=== PATIENT | male | born 1985 | race Caucasian/White ===

== ENCOUNTER 2017-01-31 03:07 | Emergency (ER) | payer SELFPAY ==
[~2017-01-31] VITALS: Ht 182.9 cm; Wt 61.4 kg
[~2017-01-31 03:07] MED LIST: BACT800T5 PO
[2017-01-31 03:11] VITALS: BP 124/75; PULSE 99; RESP 16; TEMP 98.4; O2SAT 100
[2017-01-31] MEDS ORDERED: ceFAZolin 2 GM PREMIX 50 ML IV ONE (03:45)
[2017-01-31] MEDS ORDERED: CLINDAMYCIN INJ 900 MG in SODIUM CHLORIDE 0.9% INJ 100 ML IV ONE (03:45)
[2017-01-31] MEDS ORDERED: SODIUM CHLOR 0.9% 1000 ML INJ 1,000 ML IV ONE (03:45)
[2017-01-31 04:11] LABS: AUTOMATED NEUTROPHIL # 4.9 TH/MM3 (1.8-7.7); BASOPHIL # 0.1 TH/MM3 (0-0.2); BASOPHIL % 0.7 % (0.0-2.0); EOSINOPHIL # 0.2 TH/MM3 (0-0.4); HEMATOCRIT 38.5 % (39.0-51.0); HEMO FLAGS DIFF FINAL; LYMPH % 27.4 % (9.0-44.0); LYMPHOCYTE # 2.2 TH/MM3 (1.0-4.8); MEAN CELL VOLUME 91.7 FL (80.0-100.0); MEAN CORPUSCULAR HEMOGLOBIN 32.6 PG (27.0-34.0); MEAN CORPUSCULAR HGB CONC 35.5 % (32.0-36.0); MONO % 9.3 % (0.0-8.0); NEUT % 60.6 % (16.0-70.0); PLATELET COUNT 214 TH/MM3 (150-450); RED CELL DISTRIBUTION WIDTH 12.7 % (11.6-17.2); WHITE BLOOD COUNT 8.1 TH/MM3 (4.0-11.0)
--- NOTE | 2017-01-31 04:18 | RADRPT ---
EXAM DATE/TIME: 01/31/2017 03:56 [place] COMPARISON: No previous studies available for comparison. INDICATIONS : Inflammation of left leg, swelling. MEDICAL HISTORY : None. SURGICAL HISTORY : None. ENCOUNTER: Initial ACUITY: 1 day PAIN SCORE: 0/10 LOCATION: Left tib fib FINDINGS: Two view examination of the left tibia demonstrates no evidence of fracture or dislocation. Bony min eralization is normal. The soft tissue structures are intact. CONCLUSION: Unremarkable examination of the left tibia. Mic Mosley MD on January 31, 2017 at 4:17 Board Certified Radiologist. This report was verified electronically.
[2017-01-31 04:30] LABS: BICARBONATE 27.8 MEQ/L (21.0-32.0); POTASSIUM 3.8 MEQ/L (3.5-5.1)
[2017-01-31] MEDS ORDERED: BACT800T5 PO (05:10)
[2017-01-31] MEDS ORDERED: CEPH-460 PO (05:10)
--- NOTE | 2017-01-31 05:10 | PD ---
HPI Chief Complaint: Injury Time Seen by Provider: 03:11 Travel History International Travel<30 days: No Contact w/Intl Traveler<30days: No Traveled to known affect area: No History of Present Illness HPI The patient is a 31 year old male who presents to the [facility] emergency department with a history of bumping his left kumari approximately 2 weeks ago. He reports that it had an abrasion on the anterior aspect. He reports that he cleaned it with peroxide and it was slowly healing over time up until yesterday when he noticed that it looked like he was getting infected. The patient reports that he squeezed the area and a small amount of yellow discharge was drained. He reports that since then it is crusted over. He reports that since then the area of redness and swelling has increased in size. He reports that his tetanus was updated earlier this year. He denies having any fevers or chills. He denies having any cough or congestion. Otherwise on review of systems, he denies having any neck pain, chest pain, shortness of breath, abdominal pain, vomiting, diarrhea, urinary symptoms, or neurologic symptoms. [facility] Past Medical History Narrative Medical The patient's past medical history is significant for bipolar disorder, hepatitis C. Bipolar Disorder: Yes Diminished Hearing: No Hepatitis: Yes (hep c) Past Surgical History Narrative Surgical The patient's past surgical history is significant for facial bone ORIF. Other Surgery: Yes (plates in face for fractures, ) Social History Alcohol Use: No Tobacco Use: Yes (02/27 ppd) Substance Use: No (stated IV drug last use 2015) Allergies-Medications (Allergen,Severity, Reaction): Coded Allergies: No Known Allergies (Unverified , 05/08/16) Reported Meds & Prescriptions Reported Meds & Active Scripts Active Bactrim DS (Sulfamethoxazole-Trimethoprim) 800-160 Mg Tab 1 Tab PO BID Review of Systems Except as stated in HPI: all other systems reviewed are Neg General / Constitutional: No: Fever Eyes: No: Visual changes HENT: No: Headaches Cardiovascular: No: Chest Pain or Discomfort Respiratory: No: Shortness of Breath Gastrointestinal: No: Nausea, Vomiting, Diarrhea, Abdominal Pain, Changes in Bowel Habits, Indigestion, Loss of Appetite Genitourinary: No: Dysuria Musculoskeletal: No: Pain Skin: No Rash Neurologic: No: Weakness, Focal Abnormalities, Change in Mentation, Slurred Speech, Sensory Disturbance Psychiatric: No: Depression Endocrine: No: Polydipsia Hematologic/Lymphatic: No: Easy Bruising Physical Exam Narrative General: The patient is a well-developed well-nourished male in no acute distress. Head and Neck exam: Head is normocephalic atraumatic. Eyes: EOMI, pupils are equal round and reactive to light. Nose: Midline septum with pink mucous membranes Mouth: Dentition unremarkable. Moist mucus membranes. Posterior oropharynx is not erythematous. No tonsillar hypertrophy. Uvula midline. Airway patent. Neck: No palpable lymphadenopathy. No nuchal rigidity. No thyromegaly. Cardiovascular: Regular rate and rhythm without murmurs, gallops, or rubs. Lungs: Clear to auscultation bilaterally. No wheezes, rhonchi, or rales. Abdomen: Soft, without tenderness to palpation in all 4 quadrants of the abdomen. No guarding, rebound, or rigidity. Normal bowel sounds were audible. No tenderness on palpation of McBurney's point. Extremities: No clubbing or cyanosis. The patient does however have trace edema of the left lower extremity. The patient is noted on examination of the left kumari to have an abrasion in the middle anterior aspect with surrounding erythema and a small amount of edema, with warmth, no fluctuance. No crepitus or pointing. 2+ pulses in all 4 extremities. Back: No spinous process tenderness to palpation. No costovertebral angle tenderness to palpation. Neurologic Exam: Grossly nonfocal. Skin Exam: Skin is warm and dry. Data Data Last Documented VS Vital Signs Date Time Temp Pulse Resp B/P (MAP) Pulse Ox O2 Delivery O2 Flow Rate FiO2 01/31/17 03:11 98.4 99 16 124/75 (91) 100 Orders Orders Complete Blood Count With Diff (01/31/17 03:45) Basic Metabolic Panel (Bmp) (01/31/17 03:45) Iv Access Insert/Monitor (01/31/17 03:45) Ecg Monitoring (01/31/17 03:45) Oximetry (01/31/17 03:45) Clindamycin Inj (Cleocin Inj) (01/31/17 03:45) Cefazolin 2 Gm Premix (Ancef 2 Gm Premix (01/31/17 03:45) Sodium Chlor 0.9% 1000 Ml Inj (Ns 1000 M (01/31/17 03:45) Tibia/Fibula (Ap/Lat) (01/31/17 ) Labs Laboratory Tests Test 01/31/17 03:54 White Blood Count 8.1 TH/MM3 Red Blood Count 4.20 MIL/MM3 Hemoglobin 13.7 GM/DL Hematocrit 38.5 % Mean Corpuscular Volume 91.7 FL Mean Corpuscular Hemoglobin 32.6 PG Mean Corpuscular Hemoglobin Concent 35.5 % Red Cell Distribution Width 12.7 % Platelet Count 214 TH/MM3 Mean Platelet Volume 8.2 FL Neutrophils (%) (Auto) 60.6 % Lymphocytes (%) (Auto) 27.4 % Monocytes (%) (Auto) 9.3 % Eosinophils (%) (Auto) 2.0 % Basophils (%) (Auto) 0.7 % Neutrophils # (Auto) 4.9 TH/MM3 Lymphocytes # (Auto) 2.2 TH/MM3 Monocytes # (Auto) 0.8 TH/MM3 Eosinophils # (Auto) 0.2 TH/MM3 Basophils # (Auto) 0.1 TH/MM3 CBC Comment DIFF FINAL Differential Comment Blood Urea Nitrogen 16 MG/DL Creatinine 0.82 MG/DL Random Glucose 102 MG/DL Calcium Level 8.8 MG/DL Sodium Level 136 MEQ/L Potassium Level 3.8 MEQ/L Chloride Level 102 MEQ/L Carbon Dioxide Level 27.8 MEQ/L Anion Gap 6 MEQ/L Estimat Glomerular Filtration Rate 110 ML/MIN MDM Medical Decision Making Medical Screen Exam Complete: Yes Emergency Medical Condition: Yes Medical Record Reviewed: Yes Interpretation(s) Last Impressions Tibia/Fibula X-Ray 01/31/17 0000 Signed Impressions: Service Date/Time: Tuesday, January 31, 2017 03:56 - CONCLUSION: Unremarkable examination of the left tibia. Mic Mosley MD Differential Diagnosis Cellulitis, versus osteomyelitis, versus foreign body Narrative Course During the course of the patients emergency department visit, the patients history, examination, and differential diagnosis were reviewed with the patient. The patient was placed on a property assessment monitor with oximetry and frequent blood pressure monitoring. The patient had IV access obtained and blood work sent for analysis. An x-ray of the left tib-fib was ordered. The patient was initially provided clindamycin 900 mg IV, Ancef 2 g IV. The patients laboratory studies were reviewed and remarkable for a white count of 8.1, hemoglobin 13.7, platelets 214 with 9.3 monocytes Radiology studies were reviewed and remarkable for a left tib-fib x-ray that shows no acute abnormality. The patient will be discharged home with a prescription for Bactrim and Keflex. The patient is resting comfortably and feels better, is alert and in no distress. The patients results and examination findings were discussed with the patient. The repeat examination is unremarkable and benign. The history, exam, diagnostic testing, and current condition do not suggest any significant pathology to warrant further testing, continued ED treatment, admission, or surgical evaluation at this point. The vital signs have been stable. The patient does not have uncontrollable pain, intractable vomiting, or other significant symptoms. The patient's condition is stable and appropriate for discharge. The patient will pursue further outpatient evaluation with a primary care physician or other designated or consulting physician as indicated in the discharge instructions. The patient expressed understanding and was agreeable with this plan. Diagnosis Primary Impression: Cellulitis Qualified Codes: L03.116 - Cellulitis of left lower limb Referrals: [facility] 2 days Patient Instructions: Cellulitis (ED), General Instructions Med/Other Pt SpecificInfo: Prescription(s) given Scripts Cephalexin (Keflex) 500 Mg Capsule 500 MG PO QID for Infection, #39 CAP 0 Refills Prov: Chio Vasquez MD 01/31/17 Sulfamethoxazole-Trimethoprim (Bactrim DS) 800-160 Mg Tab 1 TAB PO BID for Infection, #20 TAB 0 Refills Prov: Chio Vasquez MD 01/31/17 Disposition: 01 DISCHARGE HOME Condition: Stable Chio Vasquez MD Jan 31, 2017 05:10
== END 2017-01-31 06:25 | disposition home or self-care (01) ==
LOC: NEPE 03:07
DX: L03.116 Cellulitis of left lower limb (principal); F17.200 Nicotine dependence, unspecified, uncomplicated
CPT/HCPCS: 73590; 80048; 85025; 96365; 96367; 99285; J0690; J7030